=== PATIENT | female | born 1995 | race Hispanic/Latino ===

== ENCOUNTER 2019-09-12 17:05 | Emergency (ER) | payer OTHER, SELFPAY ==
[2019-09-12] MEDS ORDERED: ACETAMINOPHEN 325 MG TABLET ONE (19:14)
--- NOTE | 2019-09-12 19:28 | ER ---
Nurse's Notes [facility] Name: Leoncio Neal Age: 23 yrs Sex: Female : 1995 Arrival Date: 09/12/2019 Time: 17:07 Bed 28 Private MD: Diagnosis: Acute upper respiratory infection, unspecified Presentation: 09/12 17:42 Presenting complaint: Patient states: headache, body ache, sore throat, fever, since iw last night, is approx 8 weeks . Transition of care: patient was not received from another setting of care. Onset of symptoms was September 11, 2019. Risk Assessment: Do you want to hurt yourself or someone else? Patient reports no desire to harm self or others. Initial Sepsis Screen: Does the patient meet any 2 criteria? No. Patient's initial sepsis screen is negative. Does the patient have a suspected source of infection? No. Patient's initial sepsis screen is negative. Care prior to arrival: None. 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 - Social history:: Smoking status: Patient/guardian denies using tobacco. - Ebola Screening: : Patient negative for fever greater than or equal to 101.5 degrees Fahrenheit, and additional compatible Ebola Virus Disease symptoms Patient denies exposure to infectious person Patient denies travel to an Ebola-affected area in the 21 days before illness onset No symptoms or risks identified at this time. Screenin:08 Abuse screen: Denies threats or abuse. Nutritional screening: No deficits noted. rb1 Tuberculosis screening: No symptoms or risk factors identified. Fall Risk None identified. Assessment: 18:08 General: Appears in no apparent distress. comfortable, Behavior is calm, cooperative, rb1 Reports fever for feeling ill for last night. Pain: Complains of pain in headache and bodyaches Pain currently is 8 out of 10 on a pain scale. Neuro: Level of Consciousness is awake, alert, obeys commands, Oriented to person, place, time, situation. Cardiovascular: Capillary refill < 3 seconds is brisk in bilateral fingers. Respiratory: Airway is patent Respiratory effort is even, unlabored, Respiratory pattern is regular, symmetrical. Respiratory: Reports cough that is non-productive. GI: Reports nausea. : No signs and/or symptoms were reported regarding the genitourinary system. EENT: Reports pain in sore throat. Derm: Skin is pink, warm \T\ dry. 19:19 Reassessment: Assumed care of pt. Pt sitting upright, no distress noted at this time. sr5 AA\T\Ox4, equl unlabored resp, skin warm/dry/nc, c/o REDDY, given tylenol as ordered. Vital Signs: 17:44 BP 124 / 75; Pulse 100; Resp 18 S; Temp 99.3; Pulse Ox 100% on R/A; Weight 97.52 kg; iw Height 5 ft. 4 in. (162.56 cm); Pain 8/10; 19:19 BP 129 / 69; Pulse 100; Resp 18; Temp 99.4; Pulse Ox 100% on R/A; Pain 2/10; sr5 17:44 Body Mass Index 36.90 (97.52 kg, 162.56 cm) iw ED Course: 17:07 Patient arrived in ED. rg4 17:43 Triage completed. iw 17:45 Arm band placed on. iw 17:45 Flu and/or RSV swab sent to lab. Strep swab sent to lab. ca1 17:52 Glenny Palomino FNP-C is [facility]. kb 17:52 Rishi Armando MD is Attending Physician. kb 18:08 Patient has correct armband on for positive identification. Bed in low position. Call rb1 light in reach. Side rails up X 1. Pulse ox on. NIBP on. 18:14 Lubna Parker, RN is Primary Nurse. rb1 19:44 No provider procedures requiring assistance completed. Patient did not have IV access sr5 during this emergency room visit. Administered Medications: 19:12 Drug: Tylenol 650 mg Route: PO; sr5 19:45 Follow up: Response: No adverse reaction sr5 Outcome: 19:27 Discharge ordered by . kb 19:44 Patient left the ED. sr5 19:44 Discharged to home ambulatory, with family. sr5 19:44 Condition: good 19:44 Discharge instructions given to patient, Instructed on discharge instructions, follow up and referral plans. medication usage. Signatures: Glenny Palomino, MULTIMEDIA PRODUCTION ASSISTANT-C MULTIMEDIA PRODUCTION ASSISTANT-Lisa Alas, RN RN iw Lubna Parker RN RN rb1 Avinash Wetzel RN RN sr5 Raquel Gomez4 Abbey Wilkins RN RN ca1
--- NOTE | 2019-09-12 19:29 | EDPHYS ---
Physician Documentation [facility] Name: Leoncio Neal Age: 23 yrs Sex: Female : 1995 Arrival Date: 09/12/2019 Time: 17:07 Bed 28 Private MD: ED Physician Rishi Armando HPI: 09/12 19:26 This 23 yrs old Female presents to ER via Ambulatory with complaints of kb Congestion, Headache. 19:26 The patient or guardian reports cough, flu symptoms. Onset: The symptoms/episode kb began/occurred yesterday. Severity of symptoms: At their worst the symptoms were mild, moderate, in the emergency department the symptoms are unchanged. Modifying factors: The symptoms are alleviated by nothing, the symptoms are aggravated by nothing. Associated signs and symptoms: Pertinent positives: fever, rhinorrhea, sore throat. The patient has not experienced similar symptoms in the past. The patient has not recently seen a physician. 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 - Social history:: Smoking status: Patient/guardian denies using tobacco. - Ebola Screening: : Patient negative for fever greater than or equal to 101.5 degrees Fahrenheit, and additional compatible Ebola Virus Disease symptoms Patient denies exposure to infectious person Patient denies travel to an Ebola-affected area in the 21 days before illness onset No symptoms or risks identified at this time. ROS: 19:25 Neck: Negative for injury, pain, and swelling, Cardiovascular: Negative for chest pain, kb palpitations, and edema, Abdomen/GI: Negative for abdominal pain, nausea, vomiting, diarrhea, and constipation, Back: Negative for injury and pain, MS/Extremity: Negative for injury and deformity, Skin: Negative for injury, rash, and discoloration. 19:25 Constitutional: Positive for body aches, chills, fever. 19:25 ENT: Positive for rhinorrhea, sinus congestion. 19:25 Respiratory: Positive for cough. 19:25 Neuro: Positive for headache. Exam: 19:25 Constitutional: This is a well developed, well nourished patient who is awake, alert, kb and in no acute distress. Head/Face: Normocephalic, atraumatic. ENT: Nares patent. No nasal discharge, no septal abnormalities noted. Tympanic membranes are normal and external auditory canals are clear. Oropharynx with no redness, swelling, or masses, exudates, or evidence of obstruction, uvula midline. Mucous membranes moist. Neck: Trachea midline, no thyromegaly or masses palpated, and no cervical lymphadenopathy. Supple, full range of motion without nuchal rigidity, or vertebral point tenderness. No Meningismus. Chest/axilla: Normal chest wall appearance and motion. Nontender with no deformity. No lesions are appreciated. Cardiovascular: Regular rate and rhythm with a normal S1 and S2. No gallops, murmurs, or rubs. Normal PMI, no JVD. No pulse deficits. Respiratory: Lungs have equal breath sounds bilaterally, clear to auscultation and percussion. No rales, rhonchi or wheezes noted. No increased work of breathing, no retractions or nasal flaring. Abdomen/GI: Soft, non-tender, with normal bowel sounds. No distension or tympany. No guarding or rebound. No evidence of tenderness throughout. Skin: Warm, dry with normal turgor. Normal color with no rashes, no lesions, and no evidence of cellulitis. MS/ Extremity: Pulses equal, no cyanosis. Neurovascular intact. Full, normal range of motion. Neuro: Awake and alert, GCS 15, oriented to person, place, time, and situation. Cranial nerves II-XII grossly intact. Motor strength 5/5 in all extremities. Sensory grossly intact. Cerebellar exam normal. Normal gait. Vital Signs: 17:44 BP 124 / 75; Pulse 100; Resp 18 S; Temp 99.3; Pulse Ox 100% on R/A; Weight 97.52 kg; iw Height 5 ft. 4 in. (162.56 cm); Pain 8/10; 19:19 BP 129 / 69; Pulse 100; Resp 18; Temp 99.4; Pulse Ox 100% on R/A; Pain 2/10; sr5 17:44 Body Mass Index 36.90 (97.52 kg, 162.56 cm) iw MDM: 18:16 Patient medically screened. kb 19:24 Data reviewed: vital signs, nurses notes. Data interpreted: Pulse oximetry: on room air kb is 100 %. Interpretation: normal. Counseling: I had a detailed discussion with the patient and/or guardian regarding: the historical points, exam findings, and any diagnostic results supporting the discharge/admit diagnosis, lab results, the need for outpatient follow up, a family practitioner, to return to the emergency department if symptoms worsen or persist or if there are any questions or concerns that arise at home. 09/12 17:45 Order name: Flu; Complete Time: 18:50 09/12 17:45 Order name: Strep; Complete Time: 19:02 09/12 18:59 Order name: Throat Culture EDME Administered Medications: 19:12 Drug: Tylenol 650 mg Route: PO; sr5 19:45 Follow up: Response: No adverse reaction sr5 Disposition: 09/13 05:55 Co-signature as Attending Physician, Rishi Armando MD I agree with the assessment and rn plan of care. Disposition: 09/12/19 19:27 Discharged to Home. Impression: Acute upper respiratory infection, unspecified. - Condition is Stable. - Discharge Instructions: Upper Respiratory Infection, Adult, [id number], Viral Respiratory Infection, [id number]. - Medication Reconciliation Form, Thank You Letter, Antibiotic Education, Prescription Opioid Use, Work release form form. - Follow up: Emergency Department; When: As needed; Reason: Worsening of condition. Follow up: Private Physician; When: 2 - 3 days; Reason: Recheck today's complaints, Continuance of care, Re-evaluation by your physician. Signatures: Dispatcher [facility]HoG[facility] Champion Regional Medical CenterGlenny Apple, SPIKE-Sivakumar LALA-Lisa Alas, RN Rishi Yoon MD MD rn Resecker, Sam, RN RN sr5 Corrections: (The following items were deleted from the chart) 09/12 19:44 19:27 09/12/2019 19:27 Discharged to Home. Impression: Acute upper respiratory sr5 infection, unspecified. Condition is Stable. Forms are Medication Reconciliation Form, Thank You Letter, Antibiotic Education, Prescription Opioid Use. Follow up: Emergency Department; When: As needed; Reason: Worsening of condition. Follow up: Private Physician; When: 2 - 3 days; Reason: Recheck today's complaints, Continuance of care, Re-evaluation by your physician. kb
[2019-09-12 21:00] VITALS: O2SAT 100
[2019-09-12 21:02] VITALS: BP 129/69; TEMP 99.4
== END 2019-09-12 19:44 | disposition home or self-care (01) ==
LOC: ER 17:05
DX: O26.891 Other specified pregnancy related conditions, first trimester (principal); Z3A.08 8 weeks gestation of pregnancy
CPT/HCPCS: 87070; 87081; 87804; 99283

== ENCOUNTER 2019-09-24 12:37 | Emergency (ER) | payer OTHER ==
--- OUTSIDE RECORDS SUMMARY | 2019-09-24 12:39 | XMS REPORT ---
:1995 [facility] Address [address] [place] [address] Care Team Providers Name Role Phone Unavailable Unavailable Unavailable Problems This patient has no known problems. Allergies, Adverse Reactions, Alerts This patient has no known allergies or adverse reactions. Medications This patient has no known medications.
[2019-09-24 13:36] LABS: Absolute Lymphocytes (CBC) 1.4 K/uL (0.7-4.9); Basophils % 0.6 % (0-1.3); Hematocrit 40.2 % (36.0-45.0); Lymphocytes % 14.5 % (15.3-44.8); RBC Red Blood Cell Count 4.82 M/uL (3.86-4.86)
[2019-09-24 14:00] LABS: Urine Blood 3+ (NEG); Urine Glucose NEGATIVE (NEG); Urine Protein 3+ (NEG); Urine Specific Gravity >1.030 (1.005-1.030); Urine pH 5.5 (5.0-7.0)
[2019-09-24] MEDS ORDERED: NITROFURAN MACRO 100 MG CAP PO ONE (14:21)
--- NOTE | 2019-09-24 14:35 | RAD REPORT ---
EXAM DESCRIPTION: US - Transvaginal OB - 09/24/2019 1:53 pm CLINICAL HISTORY: with vaginal bleeding COMPARISON: None. FINDINGS: The uterus measures 9 x 5 x 7 centimeters. A normal appearing gestational sac is present within the endometrium. Within this is a yolk sac and pole with a crown-rump length 8 millimete rs. Cardiac activity 154 beats per minute Right and left ovary appear normal. . An adnexal mass is not noted. A 9 millimeter subchorionic bleed No significant free fluid is seen. IMPRESSION: Single live intrauterine with an estimated gestational age 7 weeks 0 days MARAL 05/12/2020 Small subchorionic bleed
[2019-09-24 14:36] LABS: BUN Blood Urea Nitrogen 6 mg/dL (7-18); Bicarbonate 27 mmol/L (21-32); Glucose Level 82 mg/dL (74-106); HCG, Quantitative 81070 mIU/mL (1-3); Potassium 3.7 mmol/L (3.5-5.1); Sodium Level 138 mmol/L (136-145)
[2019-09-24 15:02] LABS: Urine Bacteria >50 /HPF (<20); Urine Culture Reflex Order REFLEXED; Urine RBC >50 /HPF (NONE SEEN)
--- NOTE | 2019-09-24 15:20 | EDPHYS ---
Physician Documentation [facility] Name: Leoncio Ugarte Age: 23 yrs Sex: Female : 1995 Arrival Date: 09/24/2019 Time: 12:39 Bed 20 Private MD: ED Physician Emeka Mahmood HPI: 09/24 13:10 This 23 yrs old Female presents to ER via Ambulatory with complaints of kdr Vaginal Bleeding, + Preg <12wks. 13:10 The patient presents to the emergency department with Blood noted on toilet paper once kdr this morning. has since urinated and did not have any blood. She is [id number] with an otherwise uncomplicated . LMP was 07/19/19. 15:13 The estimated gestational age is 7 weeks. course: care: at a clinic, kdr Leakage of Fluid: none appreciated, Ultrasound: the patient has not had an ultrasound, Risk/complications: no obvious risks or complications are appreciated. Previous pregnancies: in previous pregnancies patient has had Spontaneous miscarriage. Associated signs and symptoms: The patient has no apparent associated signs or symptoms. The patient has not experienced similar symptoms in the past. The patient has been recently seen by a physician: 1 week(s) ago. 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 - Social history:: Smoking status: Patient/guardian denies using tobacco. - Ebola Screening: : No symptoms or risks identified at this time. ROS: 15:13 Constitutional: Negative for fever, chills, and weight loss, Eyes: Negative for injury, kdr pain, redness, and discharge, ENT: Negative for injury, pain, and discharge, Neck: Negative for injury, pain, and swelling, Cardiovascular: Negative for chest pain, palpitations, and edema, Respiratory: Negative for shortness of breath, cough, wheezing, and pleuritic chest pain, Abdomen/GI: Negative for abdominal pain, nausea, vomiting, diarrhea, and constipation, Back: Negative for injury and pain, MS/Extremity: Negative for injury and deformity, Skin: Negative for injury, rash, and discoloration, Neuro: Negative for headache, weakness, numbness, tingling, and seizure activity. Psych: Negative for depression, anxiety, suicide ideation, homicidal ideation, and hallucinations, Allergy/Immunology: Negative for hives, rash, and allergies, Endocrine: Negative for neck swelling, polydipsia, polyuria, polyphagia, and marked weight changes, Hematologic/Lymphatic: Negative for swollen nodes, abnormal bleeding, and unusual bruising. 15:13 : Positive for Blood on papper when wiping x1, several urinations since ad no blood. Exam: 15:13 Constitutional: This is a well developed, well nourished patient who is awake, alert, kdr and in no acute distress. Head/Face: Normocephalic, atraumatic. Eyes: Pupils equal round and reactive to light, extra-ocular motions intact. Lids and lashes normal. Conjunctiva and sclera are non-icteric and not injected. Cornea within normal limits. Periorbital areas with no swelling, redness, or edema. Neck: Trachea midline, no thyromegaly or masses palpated, and no cervical lymphadenopathy. Supple, full range of motion without nuchal rigidity, or vertebral point tenderness. No Meningismus. Chest/axilla: Normal chest wall appearance and motion. Nontender with no deformity. No lesions are appreciated. Cardiovascular: Regular rate and rhythm with a normal S1 and S2. No gallops, murmurs, or rubs. Normal PMI, no JVD. No pulse deficits. Respiratory: Lungs have equal breath sounds bilaterally, clear to auscultation and percussion. No rales, rhonchi or wheezes noted. No increased work of breathing, no retractions or nasal flaring. Abdomen/GI: Soft, non-tender, with normal bowel sounds. No distension or tympany. No guarding or rebound. No evidence of tenderness throughout. Back: No spinal tenderness. No costovertebral tenderness. Full range of motion. Skin: Warm, dry with normal turgor. Normal color with no rashes, no lesions, and no evidence of cellulitis. MS/ Extremity: Pulses equal, no cyanosis. Neurovascular intact. Full, normal range of motion. Neuro: Awake and alert, GCS 15, oriented to person, place, time, and situation. Cranial nerves II-XII grossly intact. Motor strength 5/5 in all extremities. Sensory grossly intact. Cerebellar exam normal. Normal gait. Psych: Awake, alert, with orientation to person, place and time. Behavior, mood, and affect are within normal limits. Vital Signs: 12:43 BP 102 / 46; Pulse 94; Resp 18 S; Temp 98.0(TE); Pulse Ox 100% on R/A; Weight 96.16 kg aa5 (R); Height 5 ft. 4 in. (162.56 cm) (R); Pain 0/10; 14:25 BP 121 / 65; Pulse 72; Resp 18; Pulse Ox 99% on R/A; Pain 0/10; em 15:44 BP 105 / 54; Pulse 77; Resp 16; Pulse Ox 99% on R/A; em 12:43 Body Mass Index 36.39 (96.16 kg, 162.56 cm) aa5 MDM: 15:13 Data reviewed: vital signs, nurses notes, lab test result(s), radiologic studies. kdr Counseling: I had a detailed discussion with the patient and/or guardian regarding: the historical points, exam findings, and any diagnostic results supporting the discharge/admit diagnosis, lab results, radiology results, the need for outpatient follow up. 15:17 Patient medically screened. [facility] [address] 09/24 12:50 Order name: Quantitative Hcg; Complete Time: 15:13 kdr 09/24 12:50 Order name: Abo/rh Typing; Complete Time: 15:13 [facility] [address] 09/24 12:50 Order name: Basic Metabolic Panel; Complete Time: 15:13 [facility] [address] 09/24 12:50 Order name: CBC with Diff; Complete Time: 14:16 kdr 09/24 13:03 Order name: Urine Dipstick--Ancillary (enter results); Complete Time: 14:16 bd 09/24 13:03 Order name: Urine --Ancillary (enter results); Complete Time: 14:16 bd 09/24 12:50 Order name: IV Saline Lock; Complete Time: 13:20 kdr 09/24 12:50 Order name: Labs collected and sent; Complete Time: 13:20 kdr 09/24 12:50 Order name: NPO; Complete Time: 12:53 kdr 09/24 12:50 Order name: Urine Dipstick-Ancillary (obtain specimen); Complete Time: 13:05 kdr 09/24 13:10 Order name: US Transvaginal Ob; Complete Time: 15:13 kdr 09/24 14:15 Order name: Urine Microscopic Only; Complete Time: 15:13 iw 09/24 15:05 Order name: Urine Culture EDAK Administered Medications: 14:25 Drug: Nitrofurantoin 100 mg Route: PO; em Disposition: 09/24/19 15:17 Discharged to Home. Impression: Threatened , Urinary tract infection, site not specified. - Condition is Stable. - Prescriptions for Macrobid 100 mg Oral Capsule - take 1 capsule by ORAL route every 12 hours for 10 days; 20 capsule. - Medication Reconciliation Form, Thank You Letter, Antibiotic Education, Prescription Opioid Use form. - Follow up: Private Physician; When: 2 - 3 days; Reason: If symptoms return, Further diagnostic work-up, Recheck today's complaints, Continuance of care, Re-evaluation by your physician. - Problem is new. - Symptoms are resolved. Signatures: Dispatcher [employer] [facility] Emeka Mahmood MD MD kdr Chinmay Batres RN RN em Sherly Patricio, RN RN aa5 Corrections: (The following items were deleted from the chart) 15:45 15:17 09/24/2019 15:17 Discharged to Home. Impression: Threatened ; Urinary em tract infection, site not specified. Condition is Stable. Forms are Medication Reconciliation Form, Thank You Letter, Antibiotic Education, Prescription Opioid Use. Follow up: Private Physician; When: 2 - 3 days; Reason: If symptoms return, Further diagnostic work-up, Recheck today's complaints, Continuance of care, Re-evaluation by your physician. Problem is new. Symptoms are resolved. kdr
--- NOTE | 2019-09-24 15:20 | ER ---
Nurse's Notes [facility] Name: Leoncio Ugarte Age: 23 yrs Sex: Female : 1995 Arrival Date: 09/24/2019 Time: 12:39 Bed 20 Private MD: Diagnosis: Threatened ;Urinary tract infection, site not specified Presentation: 09/24 12:41 Presenting complaint: Patient states: "I wiped and I had some vaginal bleeding and I am aa5 ". Pt reports being 9 weeks . Pt denies abdominal pain. Transition of care: patient was not received from another setting of care. Onset of symptoms was September 24, 2019. Risk Assessment: Do you want to hurt yourself or someone else? Patient reports no desire to harm self or others. Initial Sepsis Screen: Does the patient meet any 2 criteria? No. Patient's initial sepsis screen is negative. Does the patient have a suspected source of infection? No. Patient's initial sepsis screen is negative. Care prior to arrival: None. 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 - Social history:: Smoking status: Patient/guardian denies using tobacco. - Ebola Screening: : No symptoms or risks identified at this time. Screenin:47 Abuse screen: Denies threats or abuse. Nutritional screening: No deficits noted. em Tuberculosis screening: No symptoms or risk factors identified. Fall Risk None identified. Assessment: 12:50 General: Appears in no apparent distress. comfortable, Behavior is calm, cooperative, em Denies fever. Pain: Denies pain. Neuro: Level of Consciousness is awake, alert, obeys commands, Oriented to person, place, time, situation, Appropriate for age. Cardiovascular: Capillary refill < 3 seconds Patient's skin is warm and dry. Respiratory: Airway is patent Respiratory effort is even, unlabored, Respiratory pattern is regular, symmetrical. GI: Reports nausea. : Urine is cloudy, Reports vaginal bleeding that is bright red, light flow. Derm: Skin is intact, is healthy with good turgor, Skin is pink, warm \\T\\ dry. Musculoskeletal: Capillary refill < 3 seconds, Range of motion: intact in all extremities. 14:00 Reassessment: Patient appears in no apparent distress at this time. Patient and/or em family updated on plan of care and expected duration. Pain level reassessed. Patient is alert, oriented x 3, equal unlabored respirations, skin warm/dry/pink. 15:30 Reassessment: Patient appears in no apparent distress at this time. Patient and/or em family updated on plan of care and expected duration. Pain level reassessed. Patient is alert, oriented x 3, equal unlabored respirations, skin warm/dry/pink. Patient denies pain at this time. Vital Signs: 12:43 BP 102 / 46; Pulse 94; Resp 18 S; Temp 98.0(TE); Pulse Ox 100% on R/A; Weight 96.16 kg aa5 (R); Height 5 ft. 4 in. (162.56 cm) (R); Pain 0/10; 14:25 BP 121 / 65; Pulse 72; Resp 18; Pulse Ox 99% on R/A; Pain 0/10; em 15:44 BP 105 / 54; Pulse 77; Resp 16; Pulse Ox 99% on R/A; em 12:43 Body Mass Index 36.39 (96.16 kg, 162.56 cm) aa5 ED Course: 12:39 Patient arrived in ED. as 12:42 Triage completed. aa5 12:42 Arm band placed on. aa5 12:43 Emeka Mahmood MD is Attending Physician. kdr 12:46 Chinmay Batres LVN is Primary Nurse. em 12:47 Patient has correct armband on for positive identification. Bed in low position. Call em light in reach. Side rails up X2. Pulse ox on. NIBP on. 13:00 Urine collected: clean catch specimen, cloudy. em 13:10 Initial lab(s) drawn, by me, sent to lab. Inserted saline lock: 20 gauge in left em antecubital area, using aseptic technique. Blood collected. 13:20 Basic Metabolic Panel Sent. em 13:53 Transvaginal Ob In Process Unspecified. EDMS 15:39 No provider procedures requiring assistance completed. IV discontinued, intact, em bleeding controlled, No redness/swelling at site. Pressure dressing applied. Administered Medications: 14:25 Drug: Nitrofurantoin 100 mg Route: PO; em Outcome: 15:17 Discharge ordered by . kdr 15:39 Discharged to home ambulatory, with family. em 15:39 Condition: good 15:39 Discharge instructions given to patient, Instructed on discharge instructions, follow up and referral plans. medication usage, Demonstrated understanding of instructions, follow-up care, medications, Prescriptions given X 1. 15:45 Patient left the ED. em Signatures: Dispatcher [employer] EDMS Emeka Mahmood MD MD kdr Munoz, Edgar, RN RN em Falguni Neal Audri, RN RN aa5
[2019-09-24 16:00] VITALS: O2SAT 99
[2019-09-24 16:02] VITALS: TEMP 98
[2019-09-24 16:03] VITALS: BP 105/54
== END 2019-09-24 15:45 | disposition home or self-care (01) ==
LOC: ER 12:37
DX: O20.0 Threatened abortion (principal); Z3A.09 9 weeks gestation of pregnancy; O23.41 Unspecified infection of urinary tract in pregnancy, first trimester
CPT/HCPCS: 36415; 76817; 80048; 81003; 81015; 81025; 84702; 85025; 86900; 86901; 87086; 87088; 99284

== ENCOUNTER 2020-05-11 01:10 | Emergency (ER) | payer OTHER ==
[2020-05-11 01:56] LABS: Absolute Lymphocytes (CBC) 2.5 K/uL (0.7-4.9); Basophils % 0.6 % (0-1.3); Hematocrit 35.4 % (36.0-45.0); Lymphocytes % 26.4 % (15.3-44.8); MPV 7.5 fL (7.6-11.3); RBC Red Blood Cell Count 4.14 M/uL (3.86-4.86)
[2020-05-11 01:57] LABS: Protime INR 1.06
[2020-05-11 02:02] LABS: BUN Blood Urea Nitrogen 13 mg/dL (7-18); Bicarbonate 26 mmol/L (21-32); Glucose Level 86 mg/dL (74-106); Potassium 3.9 mmol/L (3.5-5.1); Sodium Level 141 mmol/L (136-145)
--- NOTE | 2020-05-11 02:14 | ER ---
Nurse's Notes [facility] Name: Leoncio Ugarte Age: 24 yrs Sex: Female : 1995 Arrival Date: 05/11/2020 Time: 01:14 Bed 6 Private MD: Diagnosis: bleeding Presentation: 05/11 01:24 Chief complaint: Patient states: i just gave last Monday-a week ago and i mg2 passed big clots today. Coronavirus screen: Client denies travel out of the [place] in the last 14 days. At this time, the client does not indicate any symptoms associated with coronavirus-19. Ebola Screen: No symptoms or risks identified at this time. Initial Sepsis Screen: Does the patient meet any 2 criteria? No. Patient's initial sepsis screen is negative. Does the patient have a suspected source of infection? No. Patient's initial sepsis screen is negative. Risk Assessment: Do you want to hurt yourself or someone else? Patient reports no desire to harm self or others. Onset of symptoms was April 2020. 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 - Social history:: Smoking status: Patient denies any tobacco usage or history of. Patient/guardian denies using alcohol, street drugs, IV drugs. - Family history:: not pertinent. - Hospitalizations: : Patient was recently seen at. Screenin: Abuse screen: Denies threats or abuse. Denies injuries from another. Nutritional mg2 screening: No deficits noted. Tuberculosis screening: No symptoms or risk factors identified. Fall Risk None identified. Assessment: : General: Appears in no apparent distress. comfortable, Behavior is calm, cooperative. mg2 Pain: Complains of pain in abdomen Pain does not radiate. Quality of pain is described as crampy. Neuro: Level of Consciousness is awake, alert, obeys commands, Oriented to person, place, time, situation. Cardiovascular: Capillary refill < 3 seconds Patient's skin is warm and dry. Respiratory: Airway is patent Respiratory effort is even, unlabored, Respiratory pattern is regular, symmetrical. GI: No signs and/or symptoms were reported involving the gastrointestinal system. : Reports vaginal bleeding that is with clots, since monday. EENT: No signs and/or symptoms were reported regarding the EENT system. Derm: Skin is intact, is healthy with good turgor, Skin is pink, warm \T\ dry. normal. Musculoskeletal: Circulation, motion, and sensation intact. Capillary refill < 3 seconds. 02:29 Reassessment: Patient and/or family updated on plan of care and expected duration. Pain ea level reassessed. Patient is alert, oriented x 3, equal unlabored respirations, skin warm/dry/pink. Discharge instruction given to patient, verbalized the understanding of instruction. Pt left ED ambulatory tolerating well. Vital Signs: 01:24 BP 118 / 79; Pulse 94; Resp 18; Temp 98.6; Pulse Ox 100% on R/A; Height 5 ft. 4 in. mg2 (162.56 cm); 02:15 BP 99 / 74; Pulse 86; Resp 18; Pulse Ox 98% on R/A; ea ED Course: 01:14 Patient arrived in ED. es 01:14 Mahad Albrecht, RN is Primary Nurse. mg2 01:17 Rishi Armando MD is Attending Physician. rn 01:25 Triage completed. mg2 01:25 Arm band placed on. mg2 01:27 Patient has correct armband on for positive identification. Door closed. Warm blanket mg2 given. 01:50 Inserted saline lock: 20 gauge in right antecubital area, using aseptic technique. ea Blood collected. 02:28 No provider procedures requiring assistance completed. IV discontinued, intact, ea bleeding controlled, No redness/swelling at site. Pressure dressing applied. Administered Medications: No medications were administered Outcome: 02:14 Discharge ordered by . rn 02:28 Discharged to home ambulatory. mg2 02:28 Condition: stable 02:28 Discharge instructions given to patient, Instructed on discharge instructions, follow up and referral plans. Demonstrated understanding of instructions, follow-up care. 02:31 Patient left the ED. ea Signatures: Nicci Ramirez Roman, MD MD rn Antunez, Elena, RN RN ea Gardose, Michele, RN RN mg2 Corrections: (The following items were deleted from the chart) 01:34 01:32 Hospitalizations: No recent hospitalization is reported. rn rn
--- NOTE | 2020-05-11 02:14 | EDPHYS ---
Physician Documentation [facility] Name: Leoncio Ugarte Age: 24 yrs Sex: Female : 1995 Arrival Date: 05/11/2020 Time: 01:14 Bed 6 Private MD: ED Physician Rishi Armando HPI: 05/11 01:32 This 24 yrs old Female presents to ER via Ambulatory with complaints of rn Vaginal Bleeding. 01:32 The patient presents with vaginal bleeding that is. Onset: The symptoms/episode rn began/occurred just prior to arrival. Modifying factors: The symptoms are alleviated by nothing, the symptoms are aggravated by nothing. Severity of symptoms: At their worst the symptoms were mild, in the emergency department the symptoms have improved. The patient has not experienced similar symptoms in the past. 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 Reports still having mild abd cramping. No trauma. No fever or foul smelling discharge. No blood thinners or bleeding diathesis. No sob/lightheaded/chest pain/syncope. . 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 - Social history:: Smoking status: Patient denies any tobacco usage or history of. Patient/guardian denies using alcohol, street drugs, IV drugs. - Family history:: not pertinent. - Hospitalizations: : Patient was recently seen at. ROS: 01:32 Constitutional: Negative for fever, chills, and weight loss, Eyes: Negative for injury, rn pain, redness, and discharge, Cardiovascular: Negative for chest pain, palpitations, and edema, Respiratory: Negative for shortness of breath, cough, wheezing, and pleuritic chest pain, Abdomen/GI: Negative for nausea, vomiting, diarrhea, and constipation, : + vaginal bleeding with clot MS/Extremity: Negative for injury and deformity, Skin: Negative for injury, rash, and discoloration, Neuro: Negative for headache, weakness, numbness, tingling, and seizure. Exam: 01:32 Constitutional: This is a well developed, well nourished patient who is awake, alert, rn and in no acute distress. Head/Face: Normocephalic, atraumatic. Eyes: Normal conjunctivae Cardiovascular: Regular rate and rhythm. No pulse deficits. Respiratory: No increased work of breathing, no retractions or nasal flaring. Abdomen/GI: soft, non-tender Skin: Warm, dry MS/ Extremity: Pulses equal, no cyanosis Neuro: Awake and alert, GCS 15 Vital Signs: 01:24 BP 118 / 79; Pulse 94; Resp 18; Temp 98.6; Pulse Ox 100% on R/A; Height 5 ft. 4 in. mg2 (162.56 cm); 02:15 BP 99 / 74; Pulse 86; Resp 18; Pulse Ox 98% on R/A; ea MDM: 01:17 Patient medically screened. rn 02:11 Differential diagnosis: bleeding. 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 Counseling: I had a detailed discussion with the patient and/or guardian regarding: the historical points, exam findings, and any diagnostic results supporting the discharge/admit diagnosis, lab results, the need for outpatient follow up, to return to the emergency department if symptoms worsen or persist or if there are any questions or concerns that arise at home. Special discussion: I discussed with the patient/guardian in detail that at this point there is no indication for admission to the hospital. It is understood, however, that if the symptoms persist or worsen the patient needs to return immediately for re-evaluation. Based on the history and exam findings, there is no indication for further emergent testing or inpatient evaluation. I discussed with the patient/guardian the need to see the OB Gyne specialist for further evaluation of the symptoms. ED course: Hemoglobin 11.9, normal vitals, non-tender abdomen, normal vaginal without complication, and has been 1 week without problems in between. Could be collective clot vs retained placenta that was evacuated today, no further passage here. Will dc home with conservative care and return precautions, urged to call her OB first thing in morning for further instructions. Lab results handed to patient to take to her OB for serial testing. Explained to patient that she needs to keep close eye on bleeding and symptoms as retained placenta/products still a possibility and needs to f/u with her OB for exam and further testing.. 02:27 ED course: Bedside u/s shows thickened uterus, no gross evidence of blood or retained rn products, no free abd fluid. . 05/11 01:23 Order name: CBC with Diff; Complete Time: 02:10 rn 05/11 01:23 Order name: Basic Metabolic Panel; Complete Time: 02:10 rn 05/11 01:23 Order name: IV Start; Complete Time: :28 rn 05/11 01:23 Order name: Protime (+inr); Complete Time: 02: rn 05/11 01:23 Order name: Ptt, Activated; Complete Time: 02: rn 05/11 01:23 Order name: Type And Screen rn Administered Medications: No medications were administered Disposition: 05/11/20 02:14 Discharged to Home. Impression: bleeding. - Condition is Stable. - Discharge Instructions: Hemorrhage, Care After Vaginal Delivery. - Medication Reconciliation Form, Thank You Letter, Antibiotic Education, Prescription Opioid Use form. - Follow up: Private Physician; When: As needed; Reason: Recheck today's complaints, Re-evaluation by your physician. - Problem is an ongoing problem. - Symptoms have improved. Signatures: Dispatcher [employer] EDMS Rishi Armando MD MD rn Antunez, Elena, RN RN ea Gardose, Michele, RN RN mg2 Corrections: (The following items were deleted from the chart) 01:34 01:32 Hospitalizations: No recent hospitalization is reported. rn rn 02:29 02:11 ED course: Hemoglobin 11.9, normal vitals, non-tender abdomen, normal vaginal rn without complication, and has been 1 week without problems in between. Could be collective clot that was evacuated today, no further passage here. Will dc home with conservative care and return precautions, urged to call her OB first thing in morning for further instructions.. rn 02:31 02:14 05/11/2020 02:14 Discharged to Home. Impression: bleeding. Condition ea is Stable. Forms are Medication Reconciliation Form, Thank You Letter, Antibiotic Education, Prescription Opioid Use. Follow up: Private Physician; When: As needed; Reason: Recheck today's complaints, Re-evaluation by your physician. Problem is an ongoing problem. Symptoms have improved. rn
== END 2020-05-11 02:31 | disposition home or self-care (01) ==
LOC: ER 01:10
DX: O72.1 Other immediate postpartum hemorrhage (principal)
CPT/HCPCS: 36415; 80048; 85025; 85610; 85730; 86850; 86900; 86901; 99283